=== PATIENT | male | born 1970 | race Caucasian/White ===

== ENCOUNTER 2017-11-28 18:39 | Emergency (ER) | payer BC ==
[~2017-11-28] VITALS: Ht 180.3 cm; Wt 104.3 kg
--- NOTE | ~2017-11-28 | EKG ---
[place] [address] [facility] [place] [address] ELECTROCARDIOGRAM REPORT Name: ANAHIMEKA Room #: DEP Jeremiah#: [id number] Admission: 11/28/17 Attend Phys: Discharge: 11/28/17 Date of : 74 Report #: [id number] THIS REPORT FOR: //name// [facility] ED Test Date: 2017-11-28 Test Time: 19:12:26 Pat Name: MEKA CHRISTIAN Department: Room: Gender: Branch Service Specialist: SHYANNE : 1970 Requested By: Tiny John Order Number: [id number] MD: Jey Velazquez Measurements Intervals [place] Rate: 87 P: 41 WA: 145 QRS: 6 QRSD: 99 T: 58 QT: 402 QTc: 484 Interpretive Statements Sinus rhythm Multiple ventricular premature complexes ST elev, probable normal early repol pattern No previous ECG available for comparison Electronically Signed On 11-29-2017 8:50:23 CDT by Jey Velazquez [email or web address] <ELECTRONICALLY SIGNED> By: Jey Velazquez MD 11/29/17 0850 11 11 Jey Velazquez MD /SUNNY
[2017-11-28 19:05] LABS: URINE BILIRUBIN NEGATIVE (Negative); URINE BLOOD NEGATIVE (Negative); URINE CLARITY CLEAR; URINE COLOR YELLOW; URINE GLUCOSE-RANDOM* NEGATIVE (Negative); URINE KETONES NEGATIVE (Negative); URINE LEUKOCYTES-REFLEX NEGATIVE (Negative); URINE NITRITE-REFLEX NEGATIVE (Negative); URINE PROTEIN (DIPSTICK) 1+ (Negative); URINE SPECIFIC GRAVITY 1.025 (1.005-1.035); URINE UROBILINOGEN 0.2 E.U./dl (0.2-1.0)
[2017-11-28 19:10] LABS: BACTERIA-REFLEX None Seen /HPF (None Seen); CASTS None Seen /LPF (None Seen); CRYSTALS None Seen /LPF (None Seen); SQUAMOUS None Seen /LPF (0-3); URINE RBC None Seen /HPF (0-2); URINE WBC-REFLEX 0-5 Rare /HPF (0-5)
[2017-11-28 19:48] LABS: ABSOLUTE NEUTROPHILS 4.8 thou/uL (1.4-8.2); BASOPHILS 1.3 % (0.0-2.0); EOSINOPHILS 1.8 % (0.0-3.0); HEMOGLOBIN 16.1 gm/dL (14.0-18.0); LYMPHOCYTES 26.7 % (24.0-44.0); MCH 31.7 pg (26.0-34.0); MCHC 35.8 g/dL (28.0-37.0); MCV 88.6 fL (80.0-100.0); MONOCYTES 8.9 % (1.0-8.0); PLATELET COUNT 257 thou/uL (150-400); POLYS 61.3 % (36.0-66.0); RBC 5.08 mil/uL (4.50-6.00); WBC 7.9 thou/uL (4.0-11.0)
[2017-11-28 19:58] LABS: CALCIUM 9.3 mg/dL (8.5-10.1); CREATININE 1.1 mg/dL (0.7-1.3); POTASSIUM 3.6 mmol/L (3.5-5.1)
[2017-11-28 20:04] LABS: ALBUMIN 3.8 g/dL (3.4-5.0); DIRECT BILIRUBIN 0.1 mg/dL (<0.1-0.3); TOTAL BILIRUBIN 0.8 mg/dL (<0.1-1.0); TOTAL PROTEIN 7.6 g/dL (6.4-8.2)
[2017-11-28] MEDS ORDERED: NAPROSYN500 MG PO (21:24)
[2017-11-28 21:39] VITALS: BP 137/92
== END 2017-11-28 21:40 | disposition home or self-care (01) ==
LOC: ER 18:39
PROVIDERS: Emergency Medicine
DX: R20.2 Paresthesia of skin (principal); F17.210 Nicotine dependence, cigarettes, uncomplicated

== ENCOUNTER → 2017-12-28 | Outpatient (CLI) | payer BC ==
[~2017-12-28] MED LIST: NAPROSYN500 MG PO
== END ==
LOC: MRI
DX: M47.897 Other spondylosis, lumbosacral region (principal); M48.07 Spinal stenosis, lumbosacral region; M51.27 Other intervertebral disc displacement, lumbosacral region; M51.37 Other intervertebral disc degeneration, lumbosacral region